=== PATIENT | female | born 1980 | race African-American/Black ===

== ENCOUNTER 2017-08-28 11:41 | Emergency (ER) | payer MEDICAID ==
[2017-08-28] MEDS ORDERED: Ketorolac Tromethamine 30 MG/ML VIAL ONE (12:41)
[2017-08-28] MEDS ORDERED: Dexamethasone 4 mg/ml Vial ONE (12:41)
== END 2017-08-28 13:10 | disposition home or self-care (01) ==
LOC: ERS 11:41
DX: J02.0 Streptococcal pharyngitis (principal); G43.909 Migraine, unspecified, not intractable, without status migrainosus; F17.210 Nicotine dependence, cigarettes, uncomplicated
CPT/HCPCS: 87081; 87430; 96374; J1100; J1885

== ENCOUNTER 2019-04-12 17:05 | Inpatient (IN) | payer MEDICAID ==
[2019-04-12] MEDS ORDERED: Ketorolac Tromethamine 30 MG/ML VIAL ONE (17:30)
[2019-04-12] MEDS ORDERED: Acetaminophen 325 MG TAB ONE (17:30)
--- NOTE | 2019-04-12 17:56 | RAD ---
XR Foot Lt 3 View STANDARD History: Pain in foot after fall Comparison: None. Findings: Subtle widening of the Lisfranc interval. Concern for a fracture of the lateral margin of t he cuneiform versus a displaced fracture of the medial aspect of the second metacarpal base. Remainder of the foot appears unremarkable. Impression: High concern for Lisfranc fracture. CT recommended if clinically warranted.
--- NOTE | 2019-04-12 17:57 | RAD ---
XR Ankle Lt 3 View STANDARD History: Pain Comparison: None. Findings: Nondisplaced distal fibular fracture below the level of the syndesmosis. Moderate lateral m alleolar edema. Impression: Nondisplaced distal fibular fracture below the syndesmosis. No lateral talar shift.
[2019-04-12] MEDS ORDERED: Promethazine HCl 25 MG/ML VIAL IM PRN (19:08)
[2019-04-12] MEDS ORDERED: traMADol HCl 50 MG TAB PO PRN (19:08)
[2019-04-12] MEDS ORDERED: Acetaminophen/Codeine 30-300mg Tablet PO PRN (19:08)
[2019-04-12] MEDS ORDERED: Communication Order-Pharmacy FS SCH (19:15)
[2019-04-12] MEDS ORDERED: CEFAZOLIN 2 GM in Premix Bag 1 BAG IVPB SCH (19:15)
[2019-04-12] MEDS ORDERED: Fentanyl 100 MCG/2 ML VIAL ONE (19:29)
--- NOTE | 2019-04-12 19:35 | CT ---
CT LEFT FOOT WITHOUT CONTRAST: 04/12/19 HISTORY: Injury. Pain. COMPARISON: None. FINDINGS: Nondisplaced distal fibular fracture at the level of the syndesmosis. No lateral talar shift. No post erior or medial malleolar fracture. The calcaneus is intact. Talus is intact. A small avulsion fracture of the AITFL. There is a fracture of the intermediate cuneiform as well as the second metatarsal base at the expect ed location of the Lisfranc ligament insertion. There is a very subtle intra-articular fracture of th e medial cuneiform at the tarsal metatatarsal joint. Subtle fracture of the lateral margin lateral cu neiform extending into the tarsal metatarsal joint. Also a nondisplaced fracture of the cuboid extend ing into the fifth tarsal metatarsal joint. Minimal lateral subluxation of the second metatarsal base . There is also a small plantar fracture of the lateral cuneiform. IMPRESSION: 1. Nondisplaced distal fibular fracture below the level of the syndesmosis and extensive adjacen t soft tissue swelling. 2. Small osseous avulsion of the distal fibula at the AITFL. 3. Lisfranc ligament insertional avulsion fracture of the second metatarsal base. 4. Numerous midfoot fractures as described. POS: HOME
--- NOTE | 2019-04-12 21:02 | HP ---
HISTORY OF PRESENT ILLNESS: The patient is a 38-year-old lady, who is examined in the emergency room of [facility] in [place]. She reports that earlier in the evening, she was running after her child when she sustained a twisting injury to the left foot and ankle. She reports hearing a pop and immediate pain. There was no loss of consciousness. Upon arrival at [facility], her chief complaint was that of left foot and ankle pain. X-rays were obtained, that showed a nondisplaced Garnica A fracture of the lateral malleolus, but also some mild widening and irregularity at the tarsometatarsal joint at the second metatarsal region. A followup CT scan of this area showed evidence of a bony Lisfranc injury with avulsions from the plantar base of the second metatarsal and some widening at the Lisfranc joint. As such, the patient now admitted with anticipation of surgical intervention tomorrow. PAST MEDICAL HISTORY: Otherwise healthy except for history of migraine headaches. PAST SURGICAL HISTORY: Prior as well as right breast lumpectomy as well as hernia repair as an infant. MEDICATIONS: None. ALLERGIES: NONE. SOCIAL HISTORY: She denies alcohol or drug use. She does smoke cigarettes on a daily basis. FAMILY HISTORY: Noncontributory. REVIEW OF SYSTEMS: No recent fevers, chills, or sweats. Denies chest pain or shortness of breath. Denies numbness or tingling in this left lower extremity. PHYSICAL EXAMINATION: VITAL SIGNS: Temperature of 98.5 degrees Fahrenheit orally, heart rate of 80, respiratory rate of 18, and blood pressure 143/94. HEENT: Atraumatic, normocephalic. HEART: Shows regular rate and rhythm without murmur. LUNGS: Clear to auscultation bilaterally with good breath sounds. Chest wall is nontender. ABDOMEN: Flat and nontender. PELVIS: Stable. EXTREMITIES: Remarkable for this left lower extremity with an atraumatic hip and knee. She is found to have swelling at the lateral aspect of the ankle with pain to palpation at the tip of the lateral malleolus, but no crepitation. She is nontender to palpation along the medial malleolus and deltoid ligament. Her area of maximal discomfort is overlying the base the first and second metatarsals at the area of the Lisfranc joint. There is also swelling noted in this area. She is nontender to palpation along the lateral aspect of the foot. Distal sensation is intact with normal sensation dorsally and along the plantar surface of the foot. Her foot compartments are soft. IMAGING STUDIES: Plain x-ray, three-view of the foot, is remarkable for some mild widening of the Lisfranc joint with some bony irregularity consistent with a small avulsion from the lateral aspect of the medial cuneiform as well as some small avulsions of the neighboring cuneiform and cuboid. There is also an insertional avulsion fracture from the second metatarsal base. LABORATORY DATA: CBC pending. ASSESSMENT: A 38-year-old status post twisting injury to left foot and ankle, sustaining nondisplaced lateral malleolus fracture and evidence of a Lisfranc injury. PLAN: At this time, the patient will be admitted to the Orthopedic Fracture Service. I have discussed with the patient that she does have a significant midfoot injury, that I do recommend surgical intervention. We have discussed risks and benefits regarding surgical intervention. Risks include, but are not limited to bleeding, infection, nerve injury, midfoot arthrosis, loss of limb or life. The patient appears to understand and does wish to proceed. Informed consent will be obtained prior to surgery. Job ID: [id number]
[2019-04-12] MEDS: Morphine 2 MG/ML SYRINGE SLOW IVP PRN (21:35)
[2019-04-12] MEDS: Acetaminophen/Codeine 30-300mg Tablet PO PRN (21:35)
[2019-04-12 22:08] VITALS: BMI 24.0
[2019-04-13] MEDS: Morphine 2 MG/ML SYRINGE SLOW IVP PRN ×4 (00:37→20:02)
[2019-04-13] MEDS: Acetaminophen/Codeine 30-300mg Tablet PO PRN (05:07)
[2019-04-13] MEDS: Ondansetron PF 4 MG/2 ML Vial IV PRN (06:59)
[2019-04-13] MEDS ORDERED: FLU VACC QS2019-20(6MOS UP)/PF 60 MCG/0.5 ML SYRINGE IM ONE (09:00)
[2019-04-13 09:17] LABS: #Basophils 0.1 thou/uL (0.0-0.2); #Lymphocytes 1.4 thou/uL (1.20-3.40); #Monocytes 0.5 thou/uL (0.11-0.59); %Basophils 1.5 % (0.0-1.0); %Eosinophils 0.8 % (0.0-10.0); %Monocytes 9.1 % (0.0-10.0); %Neutrophils 60.5 % (42.0-75.0); Hemoglobin 12.3 g/dL (12.0-16.0); Mean Corpuscular HGB CONC 33.6 g/dL (32.0-36.0); Mean Corpuscular Hemoglobin 34.4 pg (27.0-31.0); Mean Platelet Volume 7.6 fL (7.4-10.4); Platelet Count 196 thou/uL (130-400); RBC Distribution Width 12.2 % (11.5-14.5); Red Blood Cell (RBC) Count 3.59 mill/uL (4.20-5.40)
[2019-04-13] MEDS ORDERED: Ondansetron PF 4 MG/2 ML Vial ONE (09:53)
[2019-04-13] MEDS ORDERED: Lidocaine 1% PF 5 ML VIAL ONE (09:53)
[2019-04-13] MEDS ORDERED: PROPOFOL 200 MG/20 ML VIAL ONE (09:53)
[2019-04-13] MEDS ORDERED: Fentanyl 100 MCG/2 ML VIAL ONE ×4 (14:20→17:59)
[2019-04-13] MEDS ORDERED: Bupivacaine PF 0.5% 30 ML VIAL ONE (16:55)
--- NOTE | 2019-04-13 17:08 | RAD ---
XR Foot Lt 3 View STANDARD History: ORIF Comparison: CT prior day Findings: Percutaneous 10 placement through the fourth and fifth metatarsals extending to the lateral cuneiform. There is also antegrade screw through the medial cuneiform and second metatarsal base as well as a retrograde screw through the intermediate cuneiform and the third metatarsal base. Impression: Satisfactory postoperative alignment.
[2019-04-13] MEDS ORDERED: Meperidine HCl/PF 25 MG/ML VIAL ONE (17:27)
[2019-04-13] MEDS ORDERED: Promethazine HCl 25 MG/ML VIAL ONE (18:57)
[2019-04-13] MEDS: CEFAZOLIN 2 GM in Premix Bag 1 BAG IVPB SCH (20:03)
[2019-04-13] MEDS: traMADol HCl 50 MG TAB PO PRN (22:45)
[2019-04-14] MEDS: Morphine 2 MG/ML SYRINGE SLOW IVP PRN ×3 (00:16→12:48)
[2019-04-14] MEDS: CEFAZOLIN 2 GM in Premix Bag 1 BAG IVPB SCH (04:50)
[2019-04-14] MEDS: traMADol HCl 50 MG TAB PO PRN (04:51)
[2019-04-14] MEDS: Ondansetron PF 4 MG/2 ML Vial IV PRN (07:43)
[2019-04-14] MEDS ORDERED: Ondansetron ODT 4 MG TAB PO PRN (13:18)
[2019-04-14] MEDS ORDERED: HYDROcodone/Acetaminophen 5/325 mg Tablet PO PRN ×2 (13:19)
[2019-04-14 15:15] VITALS: BP 130/81; TEMP 98.6
--- NOTE | 2019-04-14 17:30 | OP ---
DATE OF PROCEDURE: 04/13/2019 PREOPERATIVE DIAGNOSIS: Left foot Lisfranc fracture and left lateral malleolus fracture. POSTOPERATIVE DIAGNOSIS: Left foot Lisfranc fracture and left lateral malleolus fracture. PROCEDURE PERFORMED: 1. Open reduction and internal fixation of Lisfranc fracture. 2. Closed treatment of left lateral malleolus fracture. ANESTHESIA: General. SENIOR [employer] NET DEVELOPER: Rodolfo Grayson PA-C. TOURNIQUET TIME: Approximately 1 hour at 300 mmHg. ESTIMATED BLOOD LOSS: 10 mL. IMPLANTS: 3.5 mm cortical screws x2. COMPLICATIONS: None. DRAINS: None. SPECIMEN: None. OUTCOME: Near-anatomic alignment. INDICATIONS FOR PROCEDURE: The patient is a 38-year-old lady who was running down the hallway when she twisted her left foot and ankle sustaining injury. X-rays demonstrated what appeared to be widening at the Lisfranc joint and a followup CT showed evidence of fractures of the cuneiform and fracture at the base of the second metatarsal consistent with a Lisfranc injury. The patient also found to have a left lateral malleolus fracture that is nondisplaced and below the ankle mortise. Given the findings on CT scan, the patient now taken to the operating room for stabilization of this fracture. Informed consent has been obtained. All questions answered. DESCRIPTION OF PROCEDURE: The patient was brought to the operating room and a time-out performed followed by induction of general anesthesia. Next, patient was positioned supine on the OR table and a sterile prep and drape was performed in the left lower extremity. The limb was then exsanguinated with Esmarch bandage, tourniquet inflated to 300 mmHg. Next, under C-arm localization, two incisions were made dorsally, one between the first and second metatarsal bases and extending up to the level of the junction between the middle and medial cuneiform. A second incision made between the third and fourth metatarsal bases. Blunt dissection was carried down until the interval between the lateral aspect of the medial cuneiform and the base of the second metatarsal could be visualized. This was clearly open and there was evidence of tear of the Lisfranc ligament. Under direct visualization, this was reduced and held in place with a tenaculum. Next, a third small incision was made at the medial aspect of the medial cuneiform. After skin was sharply incised, dissection was carried down bluntly to the bone. Next, a drill was passed obliquely across the medial cuneiform across the Lisfranc joint capturing the base of the second metatarsal. An initial attempt was made to also capture the third metatarsal; however, this proved to be not providing acceptable stabilization and as such, the drill was backed out to just include the second metatarsal. Measurement was taken and a screw was passed across the medial cuneiform across the Lisfranc joint capturing both cortices of the proximal second metatarsal closing up the Lisfranc joint to an anatomic alignment. Next, through the second incision, blunt dissection was carried down to the lateral aspect of the third metatarsal. A drill was then passed from both cortices of the third metatarsal heading medially towards the middle cuneiform. Once appropriately positioned, a screw was passed to stabilize this ray. This was then followed by passage of a K-wire across the fourth metatarsal base and into the lateral cuneiform stabilizing this lateral ray. At this point, there was felt to be church of the normal anatomy. There was not felt to be any instability between the great toe metatarsal and medial cuneiform. This was stressed under fluoroscopic guidance and there was found to be no abnormal movement. There was also found to be no abnormal motion between the middle and medial cuneiform. As such, after the two screws and pin were placed, the incisions were irrigated with bulb syringe, then closed with nylon, Xeroform, gauze, and a well-padded fiberglass splint was then applied to the ankle. The lateral malleolus was incorporated with this splint for initiation of closed treatment of this fracture. The tourniquet was let down. The patient was transferred to recovery room in stable condition. There were no complications. She tolerated the procedure well. Job ID: [id number]
[2019-04-14] MEDS ORDERED: Gabapentin 300 MG CAP PO SCH (21:00)
== END 2019-04-14 17:16 | disposition home or self-care (01) | DRG 505 ==
LOC: ERS 17:05 → SURG A 19:16
PROVIDERS: ADMIT Orthopaedic Surgery; ATTEND Orthopaedic Surgery
PROC: 0QSP04Z Reposition Left Metatarsal with Internal Fixation Device, Open Approach (ICD-10-PCS; principal; 2019-04-13)
PROC: 0QSHXZZ Reposition Left Tibia, External Approach (ICD-10-PCS; 2019-04-13)
DX: S92.322A Displaced fracture of second metatarsal bone, left foot, initial encounter for closed fracture (principal); S82.65XA Nondisplaced fracture of lateral malleolus of left fibula, initial encounter for closed fracture; W50.2XXA Accidental twist by another person, initial encounter; G43.909 Migraine, unspecified, not intractable, without status migrainosus; F17.200 Nicotine dependence, unspecified, uncomplicated; X50.1XXA Overexertion from prolonged static or awkward postures, initial encounter; Y92.009 Unspecified place in unspecified non-institutional (private) residence as the place of occurrence of the external cause; Z28.21 Immunization not carried out because of patient refusal
CPT/HCPCS: 29515; 36415; 76000; 85025; 96372; 96374; C1713; G0390; J0690; J1885; J2001; J2175; J2270; J2405; J2550; J2704; J3010; Q0162; S0020

== ENCOUNTER 2019-11-16 11:03 | Emergency (ER) | payer MEDICAID, OTHER | END 2019-11-16 11:29 | disposition home or self-care (01) | LOC: ERS 11:03 | DX: K64.4 Residual hemorrhoidal skin tags (principal); F17.210 Nicotine dependence, cigarettes, uncomplicated; G43.909 Migraine, unspecified, not intractable, without status migrainosus | CPT/HCPCS: 99283 ==